=== PATIENT | male | born 1955 | race Caucasian/White ===

== ENCOUNTER → 2019-04-10 | Outpatient (CLI) | payer OTHER ==
--- NOTE | 2019-04-10 15:49 | PCVCIMAG ---
APPROVED REPORT Study performed: 04/10/2019 14:13:16 Exam: Stress Echocardiogram Indication: Chest pain, near syncope, htn, hlp, TIA Patient Location: Echo lab Stress Nurse: Ashley Goldman RN Status: routine Ht: 5 ft 11 in HR: 75 bpm BP: 114/80 mmHg Rhythm: NSR Procedure The patient underwent an Exercise Stress Test using the Jarett Protocol. Blood pressure, heart rate, and EKG were monitored. An Echocardiogram was performed by patient care technician in four stages in quad fashion. At peak stress, four selected images were obtained and placed side by side with resting images for comparison. Stress Test Details Stress Test: Exercise stress testing was performed using a Jarett protocol. HR Resting HR: 75 bpmMax Heart Rate (APMHR): 158 bpm Max HR Achieved: 155 bpmTarget HR (85% APMHR): 134 bpm % of APMHR: 98 Recovery HR: 100 bpm HR response to stress: Normal HR response to stress BP Resting BP: 114/80 mmHg Max BP: 182/80 mmHg Recovery BP: 172/68 mmHg BP response to stress: Normal blood pressure response to stress. ECG Resting ECG: Sinus Rhythm Stress ECG: Sinus Rhythm ST Change: Normal Arrhythmia: rare PVC Recovery ECG: Sinus Rhythm Recovery ST Change: Normal Recovery Arrhythmia: None Clinical Reason for Termination: Maximal effort Stress Symptoms: Dyspnea Exercise duration: 9 min 20 sec Highest Stage Achieved: Stage 4: 4.2 mph at 16% grade. Exercise capacity: 11.2 METs Overall Exercise Capacity for Age: Normal Scale: Active Angina Score: None Stress ECG Conclusion 1. subjectively negative for ischemia 2. electrocardiographically negative for ischemia 3. satisfactory functional capacity Pre-Stress Echo The resting Echocardiogram showed normal left ventricular contractility with an estimated Ejection Fraction of about >55%. The resting echocardiogram demonstrated normal wall motion in all wall segments. Post-Stress Echo The stress Echocardiogram showed normal left ventricular contractility with an estimated Ejection Fraction of about 65%. Compared to rest, there were no stress-induced wall motion abnormalities. Clinical No clinical or ECG evidence for ischemia. Conclusion Clinical Response: Non-ischemic Exercise Capacity: Average Stress ECG Response: Non-ischemic Stress Echo Images: Non-ischemic The left ventricle is normal in size and wall thickness in both the rest and stress images. Mild mitral regurgitation. Mild tricuspid regurgitation with PAP of 38 mmHg. Normal aortic and pulmonic valves, no regurgitation or stenosis. 1. low risk study Other Information Study Quality: Adequate <Conclusion> The left ventricle is normal in size and wall thickness in both the rest and stress images. Mild mitral regurgitation. Mild tricuspid regurgitation with PAP of 38 mmHg. Normal aortic and pulmonic valves, no regurgitation or stenosis. 1. low risk study
== END | disposition home or self-care (01) ==
LOC: PCVCIMAG 14:50
PROVIDERS: ATTEND Internal Medicine
DX: R55 Syncope and collapse (principal); I10 Essential (primary) hypertension; E78.5 Hyperlipidemia, unspecified; R07.9 Chest pain, unspecified; G45.9 Transient cerebral ischemic attack, unspecified; Z88.0 Allergy status to penicillin
CPT/HCPCS: 93325; 93351